=== PATIENT | female | born 1945 | race African-American/Black ===

== ENCOUNTER → 2018-04-22 | Day surgery (SDC) | payer MEDICARE ==
[2018-04-01 15:52] LABS: BASOPHILS % 0.3 % (0.0-1.0); EOSINOPHILS # (AUTO) 0.3 (0.0-0.4); EOSINOPHILS % 2.9 % (0.0-6.0); HEMATOCRIT 35.4 % (34.2-44.1); LYMPHOCYTES # (AUTO) 2.3 (1.0-3.2); LYMPHOCYTES % 20.8 % (18.0-39.1); MEAN CORPUSCULAR HGB CONC 31.1 g/dL (31-35); MEAN CORPUSCULAR VOLUME 80.5 fL (81-99); MONOCYTES # (AUTO) 0.6 (0.2-0.8); MONOCYTES % 5.1 % (4.4-11.3); NEUTROPHILS # (AUTO) 7.7 (2.1-6.9); NEUTROPHILS % 70.6 % (38.7-80.0); PLATELET COUNT 314 x10e3/uL (140-360); RED CELL DISTRIBUTION WIDTH 14.8 % (11.7-14.4)
[~2018-04-22] MED LIST: ELIQUIS PO; FENTANYL CITRATE/PF 100MCG/2 ML INJ ONE; GABAPENTIN300 MG PO; LEVEMIR100 UNIT/1 SC; LISINOPRIL-HCT1 EAC2 PO; PROPOFOL IV EMULSION 10 MG/ML 50 ML VIAL ONE; SIMVASTATIN40 MG PO
--- OUTSIDE RECORDS SUMMARY | 2018-04-22 08:44 | XMS REPORT | Summary of Care ---
Author Author [facility] Organization [facility] Address Unknown Phone Unavailable Encounter HELENA Lemus(CHATO) [id number] Date(s): 03/19/15 - 03/19/15 [facility] [address] [place] [address] Discharge Disposition: Home Attending Physician: Gerardo Zaldivar MD Referring Physician: Vargas Linares MD Vital Signs Most recent to 1 oldest [Reference Range]: Height 162.56 cm (03/19/15 11:25 AM) Blood Pressure 138/73 mmHg [90-140/60-90 mmHg] (03/19/15 11:25 AM) Weight 105.909 kg (03/19/15 11:25 AM) Body Mass Index 40.08 m2 (03/19/15 11:25 AM) Problem List Condition Effective Dates Status Health Status Informant Colon Active polyps(Confirmed) Diabetes(Confirmed) Active Hyperlipidemia(Confi Resolved rmed) Allergies, Adverse Reactions, Alerts No data available for this section Medications amitriptyline 25 mg oral tablet 25 mg=1 tab, PO, Bedtime, # 30 tab, 1 Refill(s) Start Date: 03/19/15 Status: Ordered Crestor 10 mg oral tablet 10 mg=1 tab, PO, Bedtime, # 30 tab, 0 Refill(s) Start Date: 03/19/15 Status: Ordered gabapentin 300 mg oral capsule 300 mg=1 cap, PO, TID, # 90 cap, 1 Refill(s) Start Date: 03/19/15 Status: Ordered hydrochlorothiazide-lisinopril 12.5 mg-20 mg oral tablet 1 tab, PO, Daily, # 30 tab, 0 Refill(s) Start Date: 03/19/15 Status: Ordered Levemir 100 units/mL See Special Instructions, SUB-Q, BID, Inject 12 units at 9am and inject 8 units at 9pm, vial, 0 Refill(s) Start Date: 03/19/15 Status: Ordered MiraLax oral powder for reconstitution 17 gm, PO, Daily, # 4 pkt, 0 Refill(s), given to patient Start Date: 03/19/15 Stop Date: 03/19/15 Status: Completed Golden 10/325 oral tablet 1 tab, PO, Q6H, PRN for pain, # 24 tab, 0 Refill(s) Start Date: 03/19/15 Stop Date: 03/25/15 Status: Ordered Suprep Bowel Prep Kit oral liquid 177 mL, PO, ONCE, # 177 mL, 0 Refill(s), given to patient Start Date: 03/19/15 Status: Ordered Results No data available for this section Immunizations No data available for this section Procedures Procedure Date Related Diagnosis Body Site Colonoscopy Laminectomy with excision of herniated intervertebral disc, nucleus pulposus Social History Social History Type Response Smoking Status Never smoker; Exposure to Tobacco Smoke None; Cigarette Smoking Last 365 Days No; Reg Smoking Cessation Counseling No Assessment and Plan No data available for this section
--- OUTSIDE RECORDS SUMMARY | 2018-04-22 08:44 | XMS REPORT | Continuity of Care Document ---
Author Author [facility] Interface Address Unknown Phone Unavailable Problems Problem Status Onset Date Classification Date Reported Comments Source Discharge Diagnosis: Pulmonary nodule 12/15/2015 12/18/2015 [facility] Discharge Diagnosis: Flank pain 12/15/2015 12/18/2015 [facility] ABD PAIN Active 12/12/2015 [facility] DSU-CONSTIPATION Active 03/19/2015 [facility] COLONOSCOPY REVEALED LARGE MASS Active 02/27/2015 [facility] Colon polyps Active Problem 12/18/2015 [facility] Diabetes Active Problem 12/18/2015 [facility] Hyperlipidemia Active Problem 12/18/2015 [facility] TIA Resolved Problem 12/18/2015 [facility] MEDICAL SERVICES NOT AVAILABLE IN HOME Active [facility] Medications Medication Details Route Status Patient Instructions Ordering Provider Order Date Source Acetaminophen 300 MG / Codeine Phosphate 30 MG Oral Tablet [Tylenol with Codeine #3] See Instructions, PRN Pain, 1 - 2 tab PO Q4H 2, # 24 tab, 0 Refill(s) Active 12/15/2015 [facility] Ondansetron 4 MG Disintegrating Tablet [Zofran] 4 mg=1 tab, PO, Q6H, PRN Nausea and Vomiting, Dissolve tab under tongue, X 3 day, # 12 tab, 0 Refill(s), [id number] 12/15/2015 [facility] Levofloxacin 750 MG Oral Tablet [Levaquin] 750 mg=1 tab, PO, Daily, X 5 day, # 5 tab, 0 Refill(s), Pharmacy: [id number] Active 12/15/2015 [facility] Zofran 4 mg, 2 mL, Route: IVP, Drug form: INJ, ONCE, Dosing Weight 98.636, kg, Priority: STAT, Start date: 12/15/15 17:56:00 CDT, Stop date: 12/15/15 17:56:00 CDTNotes: (Same as: Zofran) MEDICATION WASTE Product Size: 4 mg Product Wasted: ___ mg Inactive 12/15/2015 [facility] Morphine 4 mg, 1 mL, Route: IVP, Drug form: INJ, ONCE, Dosing Weight 98.636, kg, Priority: STAT, Start date: 12/15/15 17:29:00 CDT, Stop date: 12/15/15 17:29:00 CDTNotes: (Same as:MORPhine Sulfate) Inactive 12/15/2015 [facility] Morphine 4 mg, 1 mL, Route: IVP, Drug form: INJ, ONCE, Dosing Weight 98.636, kg, Priority: STAT, Start date: 12/15/15 14:01:00 CDT, Stop date: 12/15/15 14:01:00 CDTNotes: (Same as:MORPhine Sulfate) Inactive 12/15/2015 [facility] Zofran 4 mg, 2 mL, Route: IVP, Drug form: INJ, ONCE, Dosing Weight 98.636, kg, Priority: STAT, Start date: 12/15/15 14:01:00 CDT, Stop date: 12/15/15 14:01:00 CDTNotes: (Same as: Zofran) MEDICATION WASTE Product Size: 4 mg Product Wasted: ___ mg Inactive 12/15/2015 [facility] Saline Flush 0.9% 10 mL, Route: IVP, Drug Form: INJ, Dosing Weight 98.636, kg, PRN, PRN Line Flush, Start date: 12/15/15 13:44:00 CDT, Duration: 1 day, Stop date: 12/16/15 13:43:00 CDTNotes: (Same as: BD Posiflush) Inactive 12/15/2015 [facility] Promethazine 6.25 mg, 0.25 mL, Route: IVPB, Drug form: INJ, ONCE, Dosing Weight 105.909, kg, PRN Nausea & Vomiting, Start date: 04/05/15 15:21:00Notes: Do not give IV push. (Same as: Phenergan) No Longer Active 04/05/2015 [facility] Ondansetron 4 mg, 2 mL, Route: IVP, Drug form: INJ, ONCE, Dosing Weight 105.909, kg, PRN Nausea & Vomiting, Start date: 04/05/15 15:21:00Notes: (Same as: Zoosman) MEDICATION WASTE Product Size: 4 mg Product Wasted: ___ mg No Longer Active 04/05/2015 [facility] 3 ML liraglutide 6 MG/ML Prefilled Syringe [Victoza] 18 mg=3 mL, SUB-Q, Daily, # 3 ea, 3 Refill(s) Active 03/30/2015 [facility] Levemir 30 units, SUB-Q, BID, 0 Refill(s) Active 03/30/2015 [facility] Hydrochlorothiazide 12.5 MG / Lisinopril 10 MG Oral Tablet 1 tab, PO, Daily, # 30 tab, 0 Refill(s) Active 03/30/2015 [facility] {2 (480 ML Magnesium Sulfate 0.0277 MEQ/ML / potassium sulfate 0.0374 MEQ/ML / sodium sulfate 0.257 MEQ/ML Oral Solution) } Pack [Suprep Bowel Prep Kit] 177 mL, PO, ONCE, # 177 mL, 0 Refill(s), given to patient Active 03/19/2015 [facility] POLYETHYLENE GLYCOL 3350 142 MG/ML Oral Solution [Miralax] 17 gm, PO, Daily, # 4 pkt, 0 Refill(s), given to patient Inactive 03/19/2015 [facility] Hydrochlorothiazide 12.5 MG / Lisinopril 20 MG Oral Tablet 1 tab, PO, Daily, # 30 tab, 0 Refill(s) Active 03/19/2015 [facility] insulin detemir 100 UNT/ML Injectable Solution [Levemir] See Special Instructions, SUB-Q, BID, Inject 12 units at 9am and inject 8 units at 9pm, vial, 0 Refill(s) Active 03/19/2015 [facility] Acetaminophen 325 MG / Hydrocodone Bitartrate 10 MG Oral Tablet [Monroe 10/325] 1 tab, PO, Q6H, PRN for pain, # 24 tab, 0 Refill(s) Active 03/19/2015 [facility] gabapentin 300 MG Oral Capsule 300 mg=1 cap, PO, TID, # 90 cap, 1 Refill(s) Active 03/19/2015 [facility] amitriptyline 25 mg oral tablet 25 mg=1 tab, PO, Bedtime, # 30 tab, 1 Refill(s) Active 03/19/2015 [facility] Rosuvastatin calcium 10 MG Oral Tablet [Crestor] 10 mg=1 tab, PO, Bedtime, # 30 tab, 0 Refill(s) Active 03/19/2015 [facility] Allergies, Adverse Reactions, Alerts Substance Category Reaction Severity Reaction type Status Date Reported Comments Source Immunizations Immunization Date Given Site Status Last Updated Comments Source Results Order Name Results Value Reference Range Date Interpretation Comments Source URINE AND STOOL UA Sq Epi Moderate /LPF Few /LPF 12/15/2015 [facility] URINE AND STOOL UA WBC 3-5 /HPF None Seen /HPF 12/15/2015 [facility] URINE AND STOOL Micro? Performed (12/15/15 4:26 PM) 12/15/2015 [facility] URINE AND STOOL UA RBC None Seen (12/15/15 4:26 PM) 0 - 2 12/15/2015 [facility] URINE AND STOOL UA Bacteria Few /HPF None Seen /HPF 12/15/2015 [facility] URINE AND STOOL UA Mucus None Seen (12/15/15 4:26 PM) None Seen 12/15/2015 [facility] URINE AND STOOL UA Nitrite Negative (12/15/15 4:26 PM) Negative 12/15/2015 [facility] URINE AND STOOL UA Urobilinogen 0.2 EU/dL 0.1 - 1.0 12/15/2015 [facility] URINE AND STOOL UA Blood Negative (12/15/15 4:26 PM) Negative 12/15/2015 [facility] URINE AND STOOL UA Bili Negative *NA* (12/15/15 4:26 PM) Negative 12/15/2015 [facility] URINE AND STOOL UA Turbidity Clear (12/15/15 4:26 PM) Clear 12/15/2015 [facility] URINE AND STOOL UA Color Yellow *NA* (12/15/15 4:26 PM) Yellow 12/15/2015 [facility] URINE AND STOOL UA Leuk Est Negative (12/15/15 4:26 PM) Negative 12/15/2015 [facility] URINE AND STOOL UA Spec Grav 1.025 <=1.030 12/15/2015 [facility] URINE AND STOOL UA Ketones Negative mg/dL Negative mg/dL 12/15/2015 [facility] URINE AND STOOL UA Glucose Negative mg/dL Negative mg/dL 12/15/2015 [facility] URINE AND STOOL UA Protein Negative mg/dL Negative mg/dL 12/15/2015 [facility] URINE AND STOOL UA pH 5.5 5.0 - 8.0 12/15/2015 [facility] BLOOD BANK RESULTS ABO/Rh O NEG 12/15/2015 [facility] BLOOD BANK RESULTS Antibody Scrn Negative (12/15/15 3:53 PM) 12/15/2015 [facility] CARDIAC ENZYMES Troponin-I null 0.00 - 0.40 12/15/2015 [facility] CARDIAC ENZYMES CK MB 1.2 ng/mL 0.5 - 3.6 12/15/2015 [facility] CARDIAC ENZYMES Total CK 133 unit/L 12 - 191 12/15/2015 [facility] CARDIAC ENZYMES CK MB Index 0.9 0.0 - 2.5 12/15/2015 [facility] CHEM PANEL Lipase Lvl 290 unit/L 73 - 393 12/15/2015 [facility] CHEM PANEL eGFR 46 mL/min/1.73m2 12/15/2015 Result Comment: The eGFR is calculated using the CKD-EPI formula. In most young, healthy individuals the eGFR will be >90 mL/min/1.73m2. The eGFR declines with age. An eGFR of 60-89 may be normal in some populations, particularly the elderly, for whom the CKD-EPI formula has not been extensively validated. Use of the eGFR is not recommended in the following populations: Individuals with unstable creatinine concentrations, including patients and those with serious co-morbid conditions. Patients with extremes in muscle mass or diet. The data above are obtained from the National Kidney Disease Education Program (NKDEP) which additionally recommends that when the eGFR is used in patients with extremes of body mass index for purposes of drug dosing, the eGFR should be multiplied by the estimated BMI. [facility] CHEM PANEL A/G Ratio 0.7 0.7 - 1.6 12/15/2015 [facility] CHEM PANEL AGAP 11.7 meq/L 10.0 - 20.0 12/15/2015 [facility] CHEM PANEL B/C Ratio 12 6 - 25 12/15/2015 [facility] CHEM PANEL Globulin 5.3 g/dL 2.7 - 4.2 12/15/2015 [facility] CHEM PANEL Bili Total 0.4 mg/dL 0.2 - 1.3 12/15/2015 [facility] CHEM PANEL Glucose Lvl 153 mg/dL 70 - 99 12/15/2015 [facility] CHEM PANEL Total Protein 9.2 g/dL 6.4 - 8.4 12/15/2015 [facility] CHEM PANEL Albumin Lvl 3.9 g/dL 3.5 - 5.0 12/15/2015 [facility] CHEM PANEL ALT 28 unit/L 0 - 65 12/15/2015 [facility] CHEM PANEL Creatinine Lvl 1.34 mg/dL 0.50 - 1.40 12/15/2015 [facility] CHEM PANEL Sodium Lvl 136 meq/L 135 - 145 12/15/2015 [facility] CHEM PANEL BUN 16 mg/dL 7 - 22 12/15/2015 [facility] CHEM PANEL Potassium Lvl 4.7 meq/L 3.5 - 5.1 12/15/2015 [facility] CHEM PANEL Chloride Lvl 104 meq/L 95 - 109 12/15/2015 [facility] CHEM PANEL Calcium Lvl 10.8 mg/dL 8.5 - 10.5 12/15/2015 [facility] CHEM PANEL CO2 25 meq/L 24 - 32 12/15/2015 [facility] CHEM PANEL Alk Phos 131 unit/L 39 - 136 12/15/2015 [facility] CHEM PANEL AST 28 unit/L 0 - 37 12/15/2015 [facility] HEMATOLOGY PT 13.4 s 12.0 - 14.7 12/15/2015 [facility] HEMATOLOGY INR 1.00 0.85 - 1.17 12/15/2015 [facility] HEMATOLOGY RBC 5.05 M/CMM 4.20 - 5.40 12/15/2015 [facility] HEMATOLOGY Hct 39.6 % 36.0 - 48.0 12/15/2015 [facility] HEMATOLOGY Hgb 12.2 g/dL 12.0 - 16.0 12/15/2015 [facility] HEMATOLOGY WBC 13.1 K/CMM 3.7 - 10.4 12/15/2015 [facility] HEMATOLOGY MCH 24.2 pg 27.0 - 31.0 12/15/2015 [facility] HEMATOLOGY MCV 78.4 fL 80.0 - 98.0 12/15/2015 [facility] HEMATOLOGY Platelet 304 K/CMM 133 - 450 12/15/2015 [facility] HEMATOLOGY MPV 8.3 fL 7.4 - 10.4 12/15/2015 [facility] HEMATOLOGY RDW 16.0 % 11.5 - 14.5 12/15/2015 [facility] HEMATOLOGY MCHC 30.9 g/dL 32.0 - 36.0 12/15/2015 [facility] PTT 18.2 s 22.9 - 35.8 12/15/2015 [facility] Lymphocytes 12.2 % 20.0 - 40.0 12/15/2015 [facility] HEMATOLOGY Eosinophils 1.4 % 0.0 - 4.0 12/15/2015 [facility] HEMATOLOGY Monocytes 3.3 % 2.0 - 12.0 12/15/2015 [facility] Eosinophils # 0.2 K/CMM 0.0 - 0.5 12/15/2015 [facility] HEMATOLOGY Basophils # 0.1 K/CMM 0.0 - 0.2 12/15/2015 [facility] HEMATOLOGY Monocytes # 0.4 K/CMM 0.0 - 0.8 12/15/2015 [facility] Lymphocytes # 1.6 K/CMM 1.0 - 5.5 12/15/2015 [facility] Microcyte 1+ *ABN* (12/15/15 2:13 PM) None Seen 12/15/2015 [facility] Basophils 0.8 % 0.0 - 1.0 12/15/2015 [facility] Segs-Bands # 10.8 K/CMM 1.5 - 8.1 12/15/2015 [facility] Segs 82.3 % 45.0 - 75.0 12/15/2015 [facility] ED Abdomen/Pelvis IV contrast only CT ED Abdomen/Pelvis IV contrast only CT Clinical Indication: Abdominal pain, acute; Comparison: Right upper quadrant ultrasound performed same date. TECHNIQUE: Sequential trans-axial images of the abdomen and pelvis were obtained with a multi-detector helical CT after administration of intravenous iodinated contrast. Coronal and sagittal reconstructions were obtained. 100 mL of omnipaque contrast material was used for the exam. No oral contrast was used for the exam. CT Radiation Dose DLP 1065.29 mGy-cm FINDINGS: VISUALIZED LUNG BASES: Several small 2 to 4 mm groundglass nodules are present in the right lung base, which are likely infectious or inflammatory. ABDOMINAL SOLID ORGANS: The liver is enlarged measuring 20.1 cm in the craniocaudal dimension. No discrete hepatic lesion. Scattered calcifications in the spleen are consistent with old granulomatous disease. The pancreas, adrenals and kidneys are normal. Status post cholecystectomy. Mild prominence of the common bile duct with smooth distal tapering is likely relating to cholecystectomy status. No significant intrahepatic biliary dilatation. STOMACH AND BOWEL: The stomach is unremarkable. The small bowel loops are unremarkable without evidence of obstruction or significant wall thickening. The appendix is normal in appearance. The colon is unremarkable without evidence of obstruction or significant wall thickening. PERITONEUM AND RETROPERITONEUM: No pneumoperitoneum or ascites. The retroperitoneal region appears unremarkable. LYMPH NODES: No abdominal, pelvic, or inguinal adenopathy. VASCULAR STRUCTURES: Atherosclerotic calcifications are present in the distal aorta without aneurysmal dilatation. The inferior vena cava appears normal. The renal veins, mesenteric veins and portal vein appear unremarkable. BLADDER: The urinary bladder is partially collapsed limiting evaluation without definite abnormality. REPRODUCTIVE ORGANS: Status post hysterectomy. No adnexal mass. OSSEOUS STRUCTURES: Postsurgical changes relating to laminectomy from L4-L5. Grade 1 retrolisthesis of L5 on S1 measures 8 mm. Degenerative changes are present throughout the lower thoracic and lumbar spine. Degenerative changes also noted in the sacroiliac joints and hips. SOFT TISSUE STRUCTURES: Fat-containing ventral hernia in the periumbilical region. IMPRESSION: 1. No acute abnormality identified in the abdomen or pelvis. 2. Hepatomegaly is nonspecific. 3. Status post cholecystectomy and hysterectomy. 4. Fat-containing ventral hernia in the periumbilical region. 5. Several small 2 to 4 mm groundglass nodules in the right lung base are likely infectious or inflammatory. SL: [id number] 12/15/2015 - - Read by: Larry Christensen MD Dictated Date/time: 12/15/15 17:55 Electronically Signed by: Larry Christensen MD 12/15/15 18:04 FINAL REPORT [facility] Abdomen RUQ US Abdomen RUQ US Clinical Indication: Abdominal pain, acute Comparison: None TECHNIQUE: Grayscale and limited color sonographic evaluation of the right upper quadrant of the abdomen and gallbladder region was performed with standard technique. FINDINGS: This examination is mildly limited secondary to patient body habitus and bowel gas. LIVER: The visualized liver appears borderline enlarged, measuring up to 18.6 cm in maximal diameter. There is grossly normal hepatic contour and grossly normal hepatic echotexture. BILE DUCTS: The intrahepatic and extrahepatic bile ducts are not dilated with the common bile duct measuring 4 mm. GALLBLADDER: Surgically absent gallbladder. PANCREAS: The visualized pancreas appears unremarkable. KIDNEY: The right kidney measures 10.1 x 4.2 x 4.5 cm. There is normal renal contour and morphology, with normal parenchymal echotexture. There is no hydronephrosis. AORTA AND INFERIOR VENA CAVA: Visualized portions appear unremarkable. ASCITES: There is no right upper quadrant abdominal ascites. IMPRESSION: 1. Mildly limited right upper quadrant ultrasound examination demonstrating borderline hepatomegaly. 2. Surgically absent gallbladder. SL: [id number] 12/15/2015 - - Read by: Dinh Cruz MD Dictated Date/time: 12/15/15 15:15 Electronically Signed by: Dinh Cruz MD 12/15/15 15:18 FINAL REPORT [facility] CHEM PANEL eGFR 59 mL/min/1.73m2 03/30/2015 Result Comment: The eGFR is calculated using the CKD-EPI formula. In most young, healthy individuals the eGFR will be >90 mL/min/1.73m2. The eGFR declines with age. An eGFR of 60-89 may be normal in some populations, particularly the elderly, for whom the CKD-EPI formula has not been extensively validated. Use of the eGFR is not recommended in the following populations: Individuals with unstable creatinine concentrations, including patients and those with serious co-morbid conditions. Patients with extremes in muscle mass or diet. The data above are obtained from the National Kidney Disease Education Program (NKDEP) which additionally recommends that when the eGFR is used in patients with extremes of body mass index for purposes of drug dosing, the eGFR should be multiplied by the estimated BMI. [facility] CHEM PANEL Chloride Lvl 103 meq/L 95 - 109 03/30/2015 [facility] CHEM PANEL Sodium Lvl 138 meq/L 135 - 145 03/30/2015 [facility] CHEM PANEL Potassium Lvl 4.6 meq/L 3.5 - 5.1 03/30/2015 [facility] CHEM PANEL Creatinine Lvl 1.10 mg/dL 0.50 - 1.40 03/30/2015 [facility] CHEM PANEL BUN 15 mg/dL 7 - 22 03/30/2015 [facility] CHEM PANEL Glucose Lvl 100 mg/dL 70 - 99 03/30/2015 [facility] CHEM PANEL CO2 27 meq/L 24 - 32 03/30/2015 [facility] CHEM PANEL Calcium Lvl 10.4 mg/dL 8.5 - 10.5 03/30/2015 [facility] CHEM PANEL AGAP 12.6 meq/L 10.0 - 20.0 03/30/2015 [facility] HEMATOLOGY Segs 71.6 % 45.0 - 75.0 03/30/2015 [facility] HEMATOLOGY Segs-Bands # 8.9 K/CMM 1.5 - 8.1 03/30/2015 [facility] HEMATOLOGY Basophils 0.8 % 0.0 - 1.0 03/30/2015 [facility] HEMATOLOGY Eosinophils 4.2 % 0.0 - 4.0 03/30/2015 [facility] HEMATOLOGY Monocytes 4.9 % 2.0 - 12.0 03/30/2015 [facility] HEMATOLOGY Lymphocytes 18.5 % 20.0 - 40.0 03/30/2015 [facility] HEMATOLOGY Hypochrom 1+ (03/30/15 4:30 PM) None Seen 03/30/2015 [facility] HEMATOLOGY Basophils # 0.1 K/CMM 0.0 - 0.2 03/30/2015 [facility] HEMATOLOGY Eosinophils # 0.5 K/CMM 0.0 - 0.5 03/30/2015 [facility] HEMATOLOGY Monocytes # 0.6 K/CMM 0.0 - 0.8 03/30/2015 [facility] HEMATOLOGY Lymphocytes # 2.3 K/CMM 1.0 - 5.5 03/30/2015 [facility] HEMATOLOGY Platelet 322 K/CMM 133 - 450 03/30/2015 [facility] HEMATOLOGY MPV 8.8 fL 7.4 - 10.4 03/30/2015 [facility] HEMATOLOGY Hgb 11.5 g/dL 12.0 - 16.0 03/30/2015 [facility] HEMATOLOGY RBC 4.74 M/CMM 4.20 - 5.40 03/30/2015 [facility] HEMATOLOGY WBC 12.4 K/CMM 3.7 - 10.4 03/30/2015 [facility] HEMATOLOGY MCHC 30.6 g/dL 32.0 - 36.0 03/30/2015 [facility] HEMATOLOGY RDW 14.3 % 11.5 - 14.5 03/30/2015 [facility] HEMATOLOGY Hct 37.6 % 36.0 - 48.0 03/30/2015 [facility] HEMATOLOGY MCH 24.3 pg 27.0 - 31.0 03/30/2015 [facility] HEMATOLOGY MCV 79.3 fL 80.0 - 98.0 03/30/2015 [facility] SPECIAL CHEMISTRY Hgb A1C 11.0 % <=5.6 % 03/30/2015 [facility] Vital Signs Vital Sign Value Date Comments Source Respitory Rate 12 12/15/2015 [facility] Systolic (mm Hg) 152 12/15/2015 [facility] Diastolic (mm Hg) 68 12/15/2015 [facility] Respitory Rate 19 12/15/2015 [facility] Systolic (mm Hg) 154 12/15/2015 [facility] Diastolic (mm Hg) 81 12/15/2015 [facility] Systolic (mm Hg) 150 12/15/2015 [facility] Diastolic (mm Hg) 68 12/15/2015 [facility] Respitory Rate 28 12/15/2015 [facility] BMI Calculated 37.33 12/15/2015 [facility] Height 162.56 cm 12/15/2015 [facility] Weight 98.636 12/15/2015 [facility] Heart Rate 84 12/15/2015 [facility] Temperature Oral (F) 98.6 F 12/15/2015 [facility] Systolic (mm Hg) 151 04/05/2015 [facility] Diastolic (mm Hg) 68 04/05/2015 [facility] Respitory Rate 12 04/05/2015 [facility] Respitory Rate 12 04/05/2015 [facility] Systolic (mm Hg) 127 04/05/2015 [facility] Diastolic (mm Hg) 73 04/05/2015 [facility] Respitory Rate 12 04/05/2015 [facility] Systolic (mm Hg) 124 04/05/2015 [facility] Diastolic (mm Hg) 70 04/05/2015 [facility] Heart Rate 102 04/05/2015 [facility] Weight 105.909 04/05/2015 [facility] Height 162.56 cm 04/05/2015 [facility] BMI Calculated 40.08 04/05/2015 [facility] Height 162.56 cm 03/30/2015 [facility] Weight 106.364 03/30/2015 [facility] BMI Calculated 40.25 03/30/2015 [facility] BMI Calculated 40.08 03/19/2015 [facility] Weight 105.909 03/19/2015 [facility] Height 162.56 cm 03/19/2015 [facility] Systolic (mm Hg) 138 03/19/2015 [facility] Diastolic (mm Hg) 73 03/19/2015 [facility] Encounters Location Location Details Encounter Type Encounter Number Reason For Visit Attending Provider ADM Date DC Date Status Source [facility] [place] Outpatient [id number] Vargas Linares 03/19/2015 03/20/2015 [facility] OBS Day Surgery [id number] Gerardo Kayley 04/05/2015 04/06/2015 [facility] [id number] Joe Tom 12/15/2015 12/16/2015 [facility] Procedures Procedure Code Date Perfomer Comments Source Colonoscopy [id number] [facility] Laminectomy with excision of herniated intervertebral disc, nucleus pulposus [id number] [facility] Carpal tunnel decompression [id number] [facility] Hysterectomy [id number] [facility] Operation [id number] [facility] Carpal tunnel decompression [id number] [facility] Colonoscopy [id number] [facility] Hysterectomy [id number] [facility] Laminectomy with excision of herniated intervertebral disc, nucleus pulposus [id number] [facility] Operation [id number] [facility]
--- OUTSIDE RECORDS SUMMARY | 2018-04-22 08:44 | XMS REPORT | Summary of Care ---
Author Author [facility] Organization [facility] Address Unknown Phone Unavailable Encounter HELENA Lemus(CHATO) [id number] Date(s): 04/05/15 - 04/05/15 [facility] [address] [place] [address] Discharge Disposition: Home Attending Physician: Gerardo Zaldivar MD Referring Physician: Gerardo Zaldivar MD Vital Signs 1 2 3 Most recent to oldest [Reference Range]: 162.56 cm (04/05/15 12:56 PM) 162.56 cm (03/30/15 3:36 PM) Height 151/68 mmHg *HI* (04/05/15 4:17 PM) 127/73 mmHg (04/05/15 4:00 PM) 124/70 mmHg (04/05/15 3:45 PM) Blood Pressure [90-140/60-90 mmHg] 12 BRMIN *LOW* (04/05/15 4:17 PM) 12 BRMIN *LOW* (04/05/15 4:00 PM) 12 BRMIN *LOW* (04/05/15 3:45 PM) Respiratory Rate [14-20 BRMIN] 102 bpm *HI* (04/05/15 1:00 PM) Peripheral Pulse Rate [60-100 bpm] 105.909 kg (04/05/15 12:56 PM) 106.364 kg (03/30/15 3:36 PM) Weight 40.08 m2 (04/05/15 12:56 PM) 40.25 m2 (03/30/15 3:36 PM) Body Mass Index Problem List Condition Effective Dates Status Health Status Informant Colon Active polyps(Confirmed) Diabetes(Confirmed) Active Hyperlipidemia(Confi Active rmed) TIA(Confirmed) Resolved Allergies, Adverse Reactions, Alerts Substance Reaction Severity Status NKDA Active Medications hydrochlorothiazide-lisinopril 12.5 mg-10 mg oral tablet 1 tab, PO, Daily, # 30 tab, 0 Refill(s) Start Date: 03/30/15 Status: Ordered Levemir 30 units, SUB-Q, BID, 0 Refill(s) Start Date: 03/30/15 Status: Ordered ondansetron 4 mg, 2 mL, Route: IVP, Drug form: INJ, ONCE, Dosing Weight 105.909, kg, PRN [place] & Vomiting, Start date: 04/05/15 15:21:00 Notes: (Same as: Zofran) MEDICATION WASTE Product Size: 4 mgProduct Was kylah: ___ mg Start Date: 04/05/15 Stop Date: 04/06/15 Status: Discontinued promethazine 6.25 mg, 0.25 mL, Route: IVPB, Drug form: INJ, ONCE, Dosing Weight 105.909, kg, PRN Nausea & Vomiting, Start date: 04/05/15 15:21:00 Notes: Do not give IV push. (Same as: Phenergan) Start Date: 04/05/15 Stop Date: 04/06/15 Status: Discontinued Victoza 18 mg/3 mL subcutaneous injection 18 mg=3 mL, SUB-Q, Daily, # 3 ea, 3 Refill(s) Start Date: 03/30/15 Status: Ordered Results ELECTROLYTES Most recent to 1 oldest [Reference Range]: Sodium Lvl [135-145 138 mEq/L mEq/L] (03/30/15 4:30 PM) Potassium Lvl 4.6 mEq/L [3.5-5.1 mEq/L] (03/30/15 4:30 PM) Chloride Lvl [95-109 103 mEq/L mEq/L] (03/30/15 4:30 PM) CO2 [24-32 mEq/L] 27 mEq/L (03/30/15 4:30 PM) AGAP [10.0-20.0 12.6 mEq/L mEq/L] (03/30/15 4:30 PM) CHEM PANEL Most recent to 1 oldest [Reference Range]: Creatinine Lvl 1.10 mg/dL [0.50-1.40 mg/dL] (03/30/15 4:30 PM) eGFR 59 mL/min/1.73m2 1 *NA* (03/30/15 4:30 PM) BUN [7-22 mg/dL] 15 mg/dL (03/30/15 4:30 PM) Glucose Lvl [70-99 100 mg/dL mg/dL] *HI* (03/30/15 4:30 PM) Calcium Lvl 10.4 mg/dL [8.5-10.5 mg/dL] (03/30/15 4:30 PM) 1Result Comment: The eGFR is calculated using the [...] from the National Kidney Disease Education Program ( NKDEP) which additionally recommends that when the eGFR is used in patients with extremes of body mass index for purposes of drug dosing, the eGFR should be mul tiplied by the estimated BMI. SPECIAL CHEMISTRY Most recent to 1 oldest [Reference Range]: Hgb A1C [<=5.6 %] 11.0 % *HI* (03/30/15 4:30 PM) HEMATOLOGY Most recent to 1 oldest [Reference Range]: WBC [3.7-10.4 K/CMM] 12.4 K/CMM *HI* (03/30/15 4:30 PM) RBC [4.20-5.40 4.74 M/CMM M/CMM] (03/30/15 4:30 PM) Hgb [12.0-16.0 g/dL] 11.5 g/dL *LOW* (03/30/15 4:30 PM) Hct [36.0-48.0 %] 37.6 % (03/30/15 4:30 PM) MCV [80.0-98.0 fL] 79.3 fL *LOW* (03/30/15 4:30 PM) MCH [27.0-31.0 pg] 24.3 pg *LOW* (03/30/15 4:30 PM) MCHC [32.0-36.0 30.6 g/dL g/dL] *LOW* (03/30/15 4:30 PM) RDW [11.5-14.5 %] 14.3 % (03/30/15 4:30 PM) Platelet [133-450 322 K/CMM K/CMM] (03/30/15 4:30 PM) MPV [7.4-10.4 fL] 8.8 fL (03/30/15 4:30 PM) Segs [45.0-75.0 %] 71.6 % (03/30/15 4:30 PM) Lymphocytes 18.5 % [20.0-40.0 %] *LOW* (03/30/15 4:30 PM) Monocytes [2.0-12.0 4.9 % %] (03/30/15 4:30 PM) Eosinophils [0.0-4.0 4.2 % %] *HI* (03/30/15 4:30 PM) Basophils [0.0-1.0 0.8 % %] (03/30/15 4:30 PM) Segs-Bands # 8.9 K/CMM [1.5-8.1 K/CMM] *HI* (03/30/15 4:30 PM) Lymphocytes # 2.3 K/CMM [1.0-5.5 K/CMM] (03/30/15 4:30 PM) Monocytes # [0.0-0.8 0.6 K/CMM K/CMM] (03/30/15 4:30 PM) Eosinophils # 0.5 K/CMM [0.0-0.5 K/CMM] (03/30/15 4:30 PM) Basophils # [0.0-0.2 0.1 K/CMM K/CMM] (03/30/15 4:30 PM) Hypochrom [None 1+ Seen] (03/30/15 4:30 PM) Immunizations No data available for this section Procedures Procedure Date Related Diagnosis Body Site Carpal tunnel decompression Colonoscopy Hysterectomy Laminectomy with excision of herniated intervertebral disc, nucleus pulposus Operation Social History Social History Type Response Smoking Status Never smoker; Exposure to Tobacco Smoke None; Cigarette Smoking Last 365 Days No; Reg Smoking Cessation Counseling No Assessment and Plan No data available for this section
--- OUTSIDE RECORDS SUMMARY | 2018-04-22 08:44 | XMS REPORT | Summary of Care ---
Author Author [facility] Organization [facility] Address Unknown Phone Unavailable Encounter HELENA Lemus(CHATO) [id number] Date(s): 12/15/15 - 12/15/15 [facility] [address] [place] [address]- [phone] Discharge Diagnosis: Pulmonary nodule Discharge Diagnosis: Flank pain Discharge Disposition: Home or Self Care Attending Physician: Joe Tom MD Vital Signs 1 2 3 Most recent to oldest [Reference Range]: 162.56 cm (12/15/15 1:33 PM) Height 98.6 DegF (12/15/15 1:33 PM) Temperature Oral [96.4-99.1 DegF] 152/68 mmHg *HI* (12/15/15 6:30 PM) 154/81 mmHg *HI* (12/15/15 5:30 PM) 150/68 mmHg *HI* (12/15/15 4:34 PM) Blood Pressure [90-140/60-90 mmHg] 12 BRMIN *LOW* (12/15/15 6:30 PM) 19 BRMIN (12/15/15 5:30 PM) 28 BRMIN *HI* (12/15/15 4:34 PM) Respiratory Rate [14-20 BRMIN] 84 bpm (12/15/15 1:33 PM) Peripheral Pulse Rate [60-100 bpm] 98.636 kg (12/15/15 1:33 PM) Weight 37.33 m2 (12/15/15 1:33 PM) Body Mass Index Problem List Condition Effective Dates Status Health Status Informant Colon Active polyps(Confirmed) Diabetes(Confirmed) Active Hyperlipidemia(Confi Active rmed) TIA(Confirmed) Resolved Allergies, Adverse Reactions, Alerts Substance Reaction Severity Status NKDA Active Medications Levaquin 750 mg oral tablet 750 mg=1 tab, PO, Daily, X 5 day, # 5 tab, 0 Refill(s), Pharmacy: [id number] Start Date: 12/15/15 Stop Date: 12/20/15 Status: Ordered morphine Sulfate 4 mg, 1 mL, Route: IVP, Drug form: INJ, ONCE, Dosing Weight 98.636, kg, Priority : STAT, Start date: 12/15/15 17:29:00 CDT, Stop date: 12/15/15 17:29:00 CDT Notes: (Same as:MORPhine Sulfate) Start Date: 12/15/15 Stop Date: 12/15/15 Status: Completed morphine Sulfate 4 mg, 1 mL, Route: IVP, Drug form: INJ, ONCE, Dosing Weight 98.636, kg, Priority : STAT, Start date: 12/15/15 14:01:00 CDT, Stop date: 12/15/15 14:01:00 CDT Notes: (Same as:MORPhine Sulfate) Start Date: 12/15/15 Stop Date: 12/15/15 Status: Completed Saline Flush 0.9% 10 mL, Route: IVP, Drug Form: INJ, Dosing Weight 98.636, kg, PRN, PRN Line Flush , Start date: 12/15/15 13:44:00 CDT, Duration: 1 day, Stop date: 12/16/15 13:43: 00 CDT Notes: (Same as: BD Posiflush) Start Date: 12/15/15 Stop Date: 12/15/15 Status: Discontinued Tylenol with Codeine #3 oral tablet See Instructions, PRN Pain, 1 - 2 tab PO Q4H 2, # 24 tab, 0 Refill(s) Start Date: 12/15/15 Status: Ordered Zofran 4 mg, 2 mL, Route: IVP, Drug form: INJ, ONCE, Dosing Weight 98.636, kg, Priority : STAT, Start date: 12/15/15 14:01:00 CDT, Stop date: 12/15/15 14:01:00 CDT Notes: (Same as: Zofran) MEDICATION WASTE Product Size: 4 mgProduct Was kylah: ___ mg Start Date: 12/15/15 Stop Date: 12/15/15 Status: Completed Zofran 4 mg, 2 mL, Route: IVP, Drug form: INJ, ONCE, Dosing Weight 98.636, kg, Priority : STAT, Start date: 12/15/15 17:56:00 CDT, Stop date: 12/15/15 17:56:00 CDT Notes: (Same as: Zofran) MEDICATION WASTE Product Size: 4 mgProduct Was kylah: ___ mg Start Date: 12/15/15 Stop Date: 12/15/15 Status: Completed Zofran ODT 4 mg oral tablet, disintegrating 4 mg=1 tab, PO, Q6H, PRN Nausea and Vomiting, Dissolve tab under tongue, X 3 day , # 12 tab, 0 Refill(s), Pharmacy: [id number] Start Date: 12/15/15 Stop Date: 12/18/15 Status: Ordered Results BLOOD BANK RESULTS Most recent to 1 oldest [Reference Range]: ABO/Rh O NEG *Unknown* (12/15/15 3:53 PM) Antibody Scrn Negative (12/15/15 3:53 PM) ELECTROLYTES Most recent to 1 oldest [Reference Range]: Sodium Lvl [135-145 136 mEq/L mEq/L] (12/15/15 2:13 PM) Potassium Lvl 4.7 mEq/L [3.5-5.1 mEq/L] (12/15/15 2:13 PM) Chloride Lvl [95-109 104 mEq/L mEq/L] (12/15/15 2:13 PM) CO2 [24-32 mEq/L] 25 mEq/L (12/15/15 2:13 PM) AGAP [10.0-20.0 11.7 mEq/L mEq/L] (12/15/15 2:13 PM) CHEM PANEL Most recent to 1 oldest [Reference Range]: Creatinine Lvl 1.34 mg/dL [0.50-1.40 mg/dL] (12/15/15 2:13 PM) eGFR 46 mL/min/1.73m2 1 *NA* (12/15/15 2:13 PM) BUN [7-22 mg/dL] 16 mg/dL (12/15/15 2:13 PM) B/C Ratio [6-25] 12 (12/15/15 2:13 PM) Glucose Lvl [70-99 153 mg/dL mg/dL] *HI* (12/15/15 2:13 PM) Total Protein 9.2 g/dL [6.4-8.4 g/dL] *HI* (12/15/15 2:13 PM) Albumin Lvl [3.5-5.0 3.9 g/dL g/dL] (12/15/15 2:13 PM) Globulin [2.7-4.2 5.3 g/dL g/dL] *HI* (12/15/15 2:13 PM) A/G Ratio [0.7-1.6] 0.7 (12/15/15 2:13 PM) Calcium Lvl 10.8 mg/dL [8.5-10.5 mg/dL] *HI* (12/15/15 2:13 PM) ALT [0-65 unit/L] 28 unit/L (12/15/15 2:13 PM) AST [0-37 unit/L] 28 unit/L (12/15/15 2:13 PM) Alk Phos [39-136 131 unit/L unit/L] (12/15/15 2:13 PM) Bili Total [0.2-1.3 0.4 mg/dL mg/dL] (12/15/15 2:13 PM) Lipase Lvl [73-393 290 unit/L unit/L] (12/15/15 2:13 PM) 1Result Comment: The eGFR is calculated [...] be mul tiplied by the estimated BMI. CARDIAC ENZYMES Most recent to 1 oldest [Reference Range]: Total CK [12-191 133 unit/L unit/L] (12/15/15 2:13 PM) CK MB [0.5-3.6 1.2 ng/mL ng/mL] (12/15/15 2:13 PM) CK MB Index 0.9 [0.0-2.5] (12/15/15 2:13 PM) Troponin-I <0.02 ng/mL [0.00-0.40 ng/mL] (12/15/15 2:13 PM) URINE AND STOOL Most recent to 1 oldest [Reference Range]: UA Turbidity [Clear] Clear (12/15/15 4:26 PM) UA Color [Yellow] Yellow *NA* (12/15/15 4:26 PM) UA pH [5.0-8.0] 5.5 (12/15/15 4:26 PM) UA Spec Grav 1.025 [<=1.030] (12/15/15 4:26 PM) UA Glucose [Negative Negative mg/dL mg/dL] (12/15/15 4:26 PM) UA Blood [Negative] Negative (12/15/15 4:26 PM) UA Ketones [Negative Negative mg/dL mg/dL] *NA* (12/15/15 4:26 PM) UA Protein [Negative Negative mg/dL mg/dL] (12/15/15 4:26 PM) UA Urobilinogen 0.2 EU/dL [0.1-1.0 EU/dL] (12/15/15 4:26 PM) UA Bili [Negative] Negative *NA* (12/15/15 4:26 PM) UA Leuk Est Negative [Negative] (12/15/15 4:26 PM) UA Nitrite Negative [Negative] (12/15/15 4:26 PM) UA WBC [None Seen 3-5 /HPF /HPF] (12/15/15 4:26 PM) UA RBC [0-2] None Seen (12/15/15 4:26 PM) UA Bacteria [None Few /HPF Seen /HPF] (12/15/15 4:26 PM) UA Sq Epi [Few /LPF] Moderate /LPF *ABN* (12/15/15 4:26 PM) UA Mucus [None Seen] None Seen (12/15/15 4:26 PM) Micro? Performed (12/15/15 4:26 PM) HEMATOLOGY Most recent to 1 oldest [Reference Range]: WBC [3.7-10.4 K/CMM] 13.1 K/CMM *HI* (12/15/15 2:13 PM) RBC [4.20-5.40 5.05 M/CMM M/CMM] (12/15/15 2:13 PM) Hgb [12.0-16.0 g/dL] 12.2 g/dL (12/15/15 2:13 PM) Hct [36.0-48.0 %] 39.6 % (12/15/15 2:13 PM) MCV [80.0-98.0 fL] 78.4 fL *LOW* (12/15/15 2:13 PM) MCH [27.0-31.0 pg] 24.2 pg *LOW* (12/15/15 2:13 PM) MCHC [32.0-36.0 30.9 g/dL g/dL] *LOW* (12/15/15 2:13 PM) RDW [11.5-14.5 %] 16.0 % *HI* (12/15/15 2:13 PM) Platelet [133-450 304 K/CMM K/CMM] (12/15/15 2:13 PM) MPV [7.4-10.4 fL] 8.3 fL (12/15/15 2:13 PM) Segs [45.0-75.0 %] 82.3 % *HI* (12/15/15 2:13 PM) Lymphocytes 12.2 % [20.0-40.0 %] *LOW* (12/15/15 2:13 PM) Monocytes [2.0-12.0 3.3 % %] (12/15/15 2:13 PM) Eosinophils [0.0-4.0 1.4 % %] (12/15/15 2:13 PM) Basophils [0.0-1.0 0.8 % %] (12/15/15 2:13 PM) Segs-Bands # 10.8 K/CMM [1.5-8.1 K/CMM] *HI* (12/15/15 2:13 PM) Lymphocytes # 1.6 K/CMM [1.0-5.5 K/CMM] (12/15/15 2:13 PM) Monocytes # [0.0-0.8 0.4 K/CMM K/CMM] (12/15/15 2:13 PM) Eosinophils # 0.2 K/CMM [0.0-0.5 K/CMM] (12/15/15 2:13 PM) Basophils # [0.0-0.2 0.1 K/CMM K/CMM] (12/15/15 2:13 PM) Microcyte [None 1+ Seen] *ABN* (12/15/15 2:13 PM) PT [12.0-14.7 13.4 seconds seconds] (12/15/15 2:13 PM) INR [0.85-1.17] 1.00 (12/15/15 2:13 PM) PTT [22.9-35.8 18.2 seconds seconds] *LOW* (12/15/15 2:13 PM) Immunizations No data available for this [...]
[2018-04-22 12:25] VITALS: BP 105/86
== END | disposition home or self-care (01) ==
LOC: OR 08:42
PROVIDERS: ATTEND Internal Medicine
DX: R10.32 Left lower quadrant pain (principal); D12.4 Benign neoplasm of descending colon; D17.5 Benign lipomatous neoplasm of intra-abdominal organs; I10 Essential (primary) hypertension; E11.9 Type 2 diabetes mellitus without complications; D64.9 Anemia, unspecified; Z88.6 Allergy status to analgesic agent; Z01.810 Encounter for preprocedural cardiovascular examination; Z01.812 Encounter for preprocedural laboratory examination; Z79.4 Long term (current) use of insulin; Z86.718 Personal history of other venous thrombosis and embolism
CPT/HCPCS: 36415 ×2; 45380; 82948; 85025; 93005; J2704; 45378; 45384